=== PATIENT | male | born 1965 | race Caucasian/White ===

== ENCOUNTER → 2022-04-25 11:41 | Outpatient (BNVA) | payer OTHER, SELFPAY | PROVIDERS: PCP Internal Medicine; Visit Provider Physician Assistant | DX: S22.42XA Multiple fractures of ribs, left side, initial encounter for closed fracture (principal); W17.89XA Other fall from one level to another, initial encounter; Z20.822 Contact with and (suspected) exposure to COVID-19 | CPT/HCPCS: 71046; 71100; 72220; 87811; 99203; C9803 ==

== ENCOUNTER → 2022-05-01 13:15 | Outpatient (BNVA) | payer OTHER, SELFPAY | PROVIDERS: PCP Internal Medicine; Visit Provider Physician Assistant Medical | DX: S22.42XA Multiple fractures of ribs, left side, initial encounter for closed fracture (principal); W17.89XA Other fall from one level to another, initial encounter | CPT/HCPCS: 99213 ==

== ENCOUNTER → 2022-05-14 12:58 | Outpatient (BNVA) | payer OTHER, SELFPAY | PROVIDERS: PCP Internal Medicine; Visit Provider Physician Assistant Medical | DX: S22.42XD Multiple fractures of ribs, left side, subsequent encounter for fracture with routine healing (principal); W17.89XD Other fall from one level to another, subsequent encounter | CPT/HCPCS: 36415; 71260; 74177; 82565; 84520; 99215 ==

== ENCOUNTER → 2022-05-28 11:00 | Outpatient (BNVA) | payer OTHER, SELFPAY | PROVIDERS: PCP Internal Medicine; Visit Provider Physician Assistant Medical | DX: S29.011D Strain of muscle and tendon of front wall of thorax, subsequent encounter (principal); W17.89XD Other fall from one level to another, subsequent encounter | CPT/HCPCS: 99213 ==

== ENCOUNTER → 2022-06-12 12:41 | Outpatient (BNVA) | payer OTHER, SELFPAY | PROVIDERS: PCP Internal Medicine; Visit Provider Physician Assistant Medical | DX: S29.011D Strain of muscle and tendon of front wall of thorax, subsequent encounter (principal); W17.89XD Other fall from one level to another, subsequent encounter | CPT/HCPCS: 99213 ==

== ENCOUNTER → 2022-06-25 12:52 | Outpatient (BNVA) | payer OTHER, SELFPAY | PROVIDERS: PCP Internal Medicine; Visit Provider Physician Assistant Medical | DX: S22.42XD Multiple fractures of ribs, left side, subsequent encounter for fracture with routine healing (principal); X58.XXXD Exposure to other specified factors, subsequent encounter | CPT/HCPCS: 99213 ==

== ENCOUNTER 2022-07-18 13:00 | Outpatient (RCR) | payer OTHER, SELFPAY ==
--- NOTE | 2022-06-27 15:26 | MHC.PT.EP ---
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 CHEST XRAY + RIB FXS POST L 5TH AND 6TH. Pt ALSO REPORTS WAS TOLD HAS FX OF 7TH RIB ALSO Pt REPORTS HE FELL OFF 4 FT LOADING DOCK ON APR 19, LANDED ON L SIDE. HAD PAIN RIGHT AWAY. WAS ABLE TO GET UP . WENT TO THE FOLLOWING SATURDAY, (6 DAYS LATER) HAD XRAY, CT SCAN. WAS OOW UNTIL ABOUT 3 WKS AGO. THEN STARTED BACK LIGHT DUTY (SITTING) FU WITH JULY 27. REPORTS HAS BEEN TO ABOUT 5X (WAS RECOMMENDED PT AT PREVIOUS FU BUT INCONVENIENT WITH TIME FOR WORK.. LAST TIME RECOMMENDED PT [place] WHICH IS MORE CONVENIENT FOR HIS SCHEDULE PRESENTS TO PT WITHOUT SIGNIF UE ROM OR STRENGTH DEFICITS BUT FEELS UPPER BODY WEAKNESS. TIGHTNESS NOTED L FLANK AREA. SHOULD BENEFIT FROM PT TO ADDRESS THESE ISSUES Frequency and Duration: The patient will be seen 2X/WK X 4 WKS Short Term Goals: 1. INCREASED AWARENESS POSTURE AND RIB CARE 2. I HEP WITH DC EX PLAN Supervisor Taping Goals: 1. DECREAESED L PEC/SCAP PAIN AT LEAST 50% WITH ADLS 2. FD WORK Treatment Plan: Modalities to reduce pain, spasms and effusion. Manual therapy to restore motion and function. Therapeutic exercise to improve strength and flexibility. Neuromuscular re-education for posture and balance. Therapeutic activities to return to functional activities of daily living. Electronically signed by: BOY HIGHTOWER PT Please sign and return to therapist. Thank you for your referral.
--- NOTE | 2022-07-13 10:36 | MHC.PT.OD ---
[facility] [place] [facility] [place] Office [address] Arcadio Hope [address] [phone] F: [phone] F: [phone] F: [phone] F: [phone] Physical Therapy Daily Note Diagnosis: CHEST WALL INJURY Date of Surgery: NA Date of Evaluation: 06/27/22 Date of Treatment: 07/11/22 Treatments to Date: 4 Cancellations to Date: No Shows to Date: Authorized Visits: Insurance End Date: Precautions/ Contraindications:RIB FX L 5,6 (?7), L 1 TRANSVERSE PROCESS FX Subjective: REPORTS LB HAS BEEN BOTHERING HIM..COSTA RELATED TO SOME SWEEPING HE DID ON SATURDAY. REPORTS IT WAS UNBEARABLE YESTERDAY (DIDNT GO TO WORK). BETTER TODAY. WENT TO WORK. STILL LIGHT DUTY WHICH ENTAILS MOSTLY SITTING. REPORTS HE USED HEAT ON HIS BACK BUT IT MADE IT FEEL WORSE. TO SEE WC July Pain Score and Location: 1 L LB Objective Flowsheet: Tests & Measures PT EVAL Exercises Seated bike for LOWER BODY WARM UP X 10 MIN LEVEL 1 HL FOR LTR X 10 R (GENTLE) FIG 4 PIRIFORMIS STRETCH B X 3 R, HL FOR GENTLE HIP ADD ON BALL X 20 R, INST IN HS STRETCH IN HL AND LONGSIT PER REQUEST FROM Pt (REPORTS HE FEELS LIKE HIS HAMSTRINGS ARE GETTING TIGHT) SEATED PB ROLLOUT FWD AND LAT X 3 R EA, SHLDER EXT WITH RED TB X 20 R Lifting mechanics/golfer's lift/functional squat technique with use of step as makeshift box on table, reviewed safety in regard to lifting, core activation, etc Modalities Assessment: ABLE TO PERF EXS/STRETCHES WITHOUT ADDING TO LBP. Pt ED TO HOLD ON GLUT WORK (SL [place]) X 1-2 DAYS TO ALLOW LUMBAR/GLUT MMS TO FEEL BETTER. REPORTS SWEATING AT END OF SESSION. WOULD BENEFIT FROM PROGRESSING HIGHER LEVEL CORE AND LE WORK NEXT SESSION IF LB FEELING BETTER PT Plan: UPPER BODY STRETCH AND STRENGTHEN/POSTURE WORK, CORE WORK Short Term Goals: 1. INCREASED AWARENESS POSTURE AND RIB CARE 2. 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 DECREAESED L PEC/SCAP PAIN AT LEAST 50% WITH ADLS 2. FD WORK Electronically signed by: BOY HIGHTOWER PT
--- NOTE | 2022-07-13 14:06 | MHC.PT.OD ---
[facility] [place] Office [place] Office [place] Office [address] Arcadio Hope [address] [phone] F: [phone] F: [phone] F: [phone] F: [phone] Physical Therapy Daily Note Diagnosis: CHEST WALL INJURY Date of Surgery: NA Date of Evaluation: 06/27/22 Date of Treatment: 07/13/22 Treatments to Date: 5 Cancellations to Date: No Shows to Date: Authorized Visits: Insurance End Date: Precautions/ Contraindications:RIB FX L 5,6 (?7), L 1 TRANSVERSE PROCESS FX Subjective: Reports feeling better than he did earlier in the week, notes some mild L sided lumbar sx present today at start of session. Pain Score and Location: 1 L LB Objective Flowsheet: Tests & Measures PT EVAL Exercises Seated bike for LOWER BODY WARM UP X 10 MIN LEVEL 2.5 Hooklying posterior pelvic tilt x 4 minutes worth with GTB around thigh for abdominal brace, 4 minutes time based of task for TAC june with green theraband around thigh with cues for abdominal control, hooklying bridge with GTB x 2 sets 10R, standing hip hinge squat with TAC with GTB around thigh x 2 sets 10R with no sx, review/education for box lifts from floor<>waist and waist<>floor without weight of box x 5R no sx, progressed to 7# x 10R. Box lifts from floor<>mat with cues to avoid shear forces to knee, review of standing overhead lift/reaches with 3# on top of cabinet with goal of recruiting core. Pt reminded of stretching overhead to improve tissue extensibility, reviewed sun reaches/slow control jumping brice stretch style x5R each . Review of golfer's extension kicks for overhead and golfers lift for forward bending. Lifting mechanics/golfer's lift/functional squat technique with use of step as makeshift box on table, reviewed safety in regard to lifting, core activation, etc Modalities Assessment: Pt has attended 5 session of PT to date since start of care in June. Pt trialed in 7# box lifts (floor to waist and waist to floor, floor<>side step on table with awareness avoidance of shear force to spine and LE. Core stab completed with good tolerance (completed in 4 minute increments advised to monitor for fatigue sx with task). Pt expressing, I feel like my core was never strong . At end of session pt stated, I feel a lot better. I dont feel my back as much as before therapy. Pt issued written HEP sheets: CORE stab pelvic tilt, june, and hip abd bridge, box lifts. Pt expressing he is currently on a 15# lifting restriction he demonstrated good tolerance for 7# box lifts in the office this date and has good functional squat technique. 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 Short Term Goals: 1. INCREASED AWARENESS POSTURE AND RIB CARE 2. I HEP WITH DC EX PLAN Inspector [place] Goals: 1. DECREAESED L PEC/SCAP PAIN AT LEAST 50% WITH ADLS 2. FD WORK Electronically signed by: Shirley Mcnally, PT, DPT
--- NOTE | 2022-11-12 16:20 | MHC.PT.DC ---
[facility] [place] Office [place] Office [place] Office [address] Arcadio Hope [address] [phone] F: [phone] F: [phone] F: [phone] F: [phone] Physical Therapy Discharge Report Diagnosis: CHEST WALL INJURY Date of Surgery: NA Date of Evaluation: 06/27/22 Date of Discharge: 11/12/22 Treatments to Date: 6 Cancellations to Date: No Shows to Date: Discharge Status: Improved Function Independent with HEP Discharge Summary: Pt SEEN FOR INIT EVAL AND 5 VISITS. PER ASSESSMENT BY BILL BRIZUELA PT 07/13/22 Pt has attended 5 session of PT to date since start of care in June. Pt trialed in 7# box lifts (floor to waist and waist to floor, floor<>side step on table with awareness avoidance of shear force to spine and LE. Core stab completed with good tolerance (completed in 4 minute increments advised to monitor for fatigue sx with task). Pt expressing, I feel like my core was never strong . At end of session pt stated, I feel a lot better. I dont feel my back as much as before therapy. Pt issued written HEP sheets: CORE stab pelvic tilt, june, and hip abd bridge, box lifts. Pt expressing he is currently on a 15# lifting restriction he demonstrated good tolerance for 7# box lifts in the office this date and has good functional squat technique. THERAPIST WAS THEN OUT FOR NEXT SESSION, THEN Pt CANCELED DUE TO ILLNESS. NO FURTHER APPTS SCHEDULED Electronically signed by: BOY HIGHTOWER PT Please sign and return to therapist. Thank you for your referral.
== END 2022-11-12 16:22 | disposition home or self-care (01) ==
LOC: HO.PTWFD 13:00
PROVIDERS: Visit Provider Physician Assistant Medical
DX: S22.42XD Multiple fractures of ribs, left side, subsequent encounter for fracture with routine healing (principal)
CPT/HCPCS: 97110; 97161; 97535

== ENCOUNTER → 2022-07-27 10:47 | Outpatient (BNVA) | payer SELFPAY | PROVIDERS: PCP Internal Medicine; Visit Provider Physician Assistant Medical | DX: F17.210 Nicotine dependence, cigarettes, uncomplicated (principal); S22.42XD Multiple fractures of ribs, left side, subsequent encounter for fracture with routine healing; S29.8XXD Other specified injuries of thorax, subsequent encounter; W17.89XD Other fall from one level to another, subsequent encounter; M54.42 Lumbago with sciatica, left side; Z86.16 Personal history of COVID-19; Z80.1 Family history of malignant neoplasm of trachea, bronchus and lung | CPT/HCPCS: 99213; G0296 ==

== ENCOUNTER → 2022-08-16 14:52 | Outpatient (BNVA) | payer OTHER, SELFPAY | PROVIDERS: PCP Internal Medicine; Visit Provider Physician Assistant Medical | DX: S22.42XD Multiple fractures of ribs, left side, subsequent encounter for fracture with routine healing (principal); W17.89XD Other fall from one level to another, subsequent encounter | CPT/HCPCS: 99213 ==

== ENCOUNTER → 2022-09-20 12:52 | Outpatient (BNVA) | payer OTHER, SELFPAY | PROVIDERS: PCP Internal Medicine; Visit Provider Physician Assistant Medical | DX: S22.42XD Multiple fractures of ribs, left side, subsequent encounter for fracture with routine healing (principal); S20.219D Contusion of unspecified front wall of thorax, subsequent encounter; S32.029D Unspecified fracture of second lumbar vertebra, subsequent encounter for fracture with routine healing; W17.89XD Other fall from one level to another, subsequent encounter | CPT/HCPCS: 99213 ==

== ENCOUNTER → 2022-10-18 13:17 | Outpatient (BNVA) | payer OTHER, SELFPAY | PROVIDERS: PCP Internal Medicine; Visit Provider Physician Assistant Medical | DX: S20.212D Contusion of left front wall of thorax, subsequent encounter (principal); S22.42XD Multiple fractures of ribs, left side, subsequent encounter for fracture with routine healing; S32.029D Unspecified fracture of second lumbar vertebra, subsequent encounter for fracture with routine healing; W17.89XD Other fall from one level to another, subsequent encounter | CPT/HCPCS: 99213 ==

== ENCOUNTER → 2022-12-17 13:00 | Outpatient (BNVA) | payer OTHER, SELFPAY | PROVIDERS: PCP Internal Medicine; Visit Provider Physician Assistant Medical | DX: S22.42XD Multiple fractures of ribs, left side, subsequent encounter for fracture with routine healing (principal); S32.029D Unspecified fracture of second lumbar vertebra, subsequent encounter for fracture with routine healing; W17.89XD Other fall from one level to another, subsequent encounter | CPT/HCPCS: 99213 ==

== ENCOUNTER → 2023-02-15 09:33 | Outpatient (BNVA) | payer OTHER, SELFPAY | PROVIDERS: PCP Internal Medicine; Visit Provider Physician Assistant Medical | DX: S29.019A Strain of muscle and tendon of unspecified wall of thorax, initial encounter (principal); S22.42XD Multiple fractures of ribs, left side, subsequent encounter for fracture with routine healing; S32.029D Unspecified fracture of second lumbar vertebra, subsequent encounter for fracture with routine healing; W17.89XD Other fall from one level to another, subsequent encounter | CPT/HCPCS: 99213 ==